=== PATIENT | male | born 1965 | race African-American/Black ===

== ENCOUNTER 2024-05-06 13:26 | Inpatient (IN) | payer OTHER ==
[2024-05-06 14:16] VITALS: BMI 27.6
[2024-05-06] MEDS ORDERED: BENZOCAINE/MENTHOL (CHLORASEPTIC ) LOZENGE MM PRN (14:53)
[2024-05-06] MEDS ORDERED: NICOTINE POLACRILEX 2 MG LOZENGE BC PRN (14:53)
[2024-05-06] MEDS ORDERED: MAG HYDROX/AL HYDROX/SIMETH 30 ML UNIT-DOSE CUP PO PRN (14:53)
[2024-05-06] MEDS ORDERED: NICOTINE POLACRILEX 2 MG GUM BUC PRN (14:53)
[2024-05-06] MEDS ORDERED: POLYETHYLENE GLYCOL (HEALTHYLAX) 3350 17 GM PACKET PO PRN (14:53)
[2024-05-06] MEDS ORDERED: LOPERAMIDE HCL 2 MG CAPSULE PO PRN (14:53)
[2024-05-06] MEDS ORDERED: MAGNESIUM HYDROX 2400MG/30ML ORAL SUSPENSION 30 ML CUP PO PRN (14:53)
[2024-05-06] MEDS ORDERED: BENZONATATE 200 MG CAPSULE PO PRN (14:53)
[2024-05-06] MEDS ORDERED: ACETAMINOPHEN 325 MG TABLET (FP) PO PRN (14:53)
[2024-05-06] MEDS ORDERED: IBUPROFEN 400 MG TABLET (FP) PO PRN (14:53)
[2024-05-06] MEDS ORDERED: hydrOXYzine PAMOATE 25 MG CAPSULE (FP) PO PRN (14:53)
[2024-05-06] MEDS ORDERED: guaiFENesin 600 MG TABLET.ER (FP) PO PRN (14:53)
[2024-05-06] MEDS: ASPIRIN COATED 81 MG TABLET.EC PO SCH (23:18)
[2024-05-06] MEDS: MELATONIN 5 MG TABLETS PO SCH (23:18)
[2024-05-06] MEDS: THIAMINE 100 MG TABLET PO SCH (23:19)
[2024-05-07] MEDS: TUBERCULIN PPD 5 TU/0.1ML SYRINGE (IN PATIENT USE ONLY) ID ONE (09:51)
[2024-05-07] MEDS: PRENATAL VITAMINS W/ FOLIC ACID TABLET (FP) PO SCH (09:51)
[2024-05-07 10:49] LABS: HEMATOCRIT 33.9 % (35.4-49); HEMOGLOBIN 11.6 GM/dL (11.7-16.9); MCH 31.6 pg (25.7-33.7); MCHC 34.2 g/dl (32.0-35.9); MEAN CELL VOLUME 92.5 fl (80-96); MEAN PLT VOLUME 11.9 fl (7.5-11.1); PLATELET COUNT 117 10^3/uL (134-434); RBC 3.67 M/mm3 (4.00-5.60); RDW 13.5 % (11.9-15.9); WHITE BLOOD COUNT 4.8 K/mm3 (4.0-10.0)
[2024-05-07 11:02] LABS: POTASSIUM 3.7 mmol/L (3.5-5.1)
[2024-05-07 11:16] LABS: CALCIUM 7.8 mg/dL (8.5-10.1)
[2024-05-07 11:17] LABS: BLOOD UREA NITROGEN 20.2 mg/dL (7-18)
[2024-05-07 11:20] LABS: CREATININE 1.3 mg/dL (0.55-1.3)
[2024-05-07 11:24] LABS: BILIRUBIN,TOTAL 0.8 mg/dL (0.2-1); TOT PROT 6.2 g/dl (6.4-8.2)
[2024-05-07 11:59] LABS: SYPHILIS W/ RPR CONF REACTIVE (NONREACTIVE)
[2024-05-09] MEDS: SACUBITRIL/VALSARTAN 97 MG-103 MG TABLET PO SCH (14:36)
[2024-05-09] MEDS: CARVEDILOL 12.5 MG TABLET (FP) PO SCH (14:36)
[2024-05-09] MEDS: SPIRONOLACTONE 25 MG TABLET PO SCH (14:37)
[2024-05-09 22:00] LABS: PH,URINE 6.5 (5.0-8.0); URINE APPEARANCE CLEAR; URINE BILIRUBIN NEGATIVE (NEGATIVE); URINE COLOR YELLOW; URINE GLUCOSE (UA) TRACE (NEGATIVE); URINE KETONE NEGATIVE (NEGATIVE); URINE LEUK ESTERASE NEGATIVE (NEGATIVE); URINE NITRITE NEGATIVE (NEGATIVE); URINE PROTEIN TRACE (NEGATIVE); URINE UROBILINOGEN 0.2 mg/dL (0.2-1.0)
[2024-05-10] MEDS: FUROSEMIDE 40 MG TABLET (FP) PO SCH (09:28)
[2024-05-10] MEDS: ISOSORBIDE MONONITRATE 30 MG TAB.SR.24H (FP) PO SCH (10:58)
[2024-05-10] MEDS: QUEtiapine FUMARATE 100 MG TABLET (FP) PO SCH (21:28)
[2024-05-11] MEDS: SERTRALINE HCL 25 MG TABLET (FP) PO SCH (10:01)
[2024-05-12] MEDS: SERTRALINE HCL 50 MG TABLET (FP) PO SCH (10:01)
[2024-05-12] MEDS: IBUPROFEN 600 MG TABLET (FP) PO PRN (11:20)
[2024-05-13] MEDS ORDERED: BENZOCAINE 20 % GEL TUBE MM PRN (10:47)
[2024-05-13] MEDS: BACLOFEN 10 MG TABLET (FP) PO SCH (11:06)
[2024-05-13] MEDS: AMOX TR/POT CLAV 500MG/125MG TABLETS (FP) PO SCH (17:45)
[2024-05-13] MEDS: CARVEDILOL 6.25 MG TABLET (FP) PO SCH (21:28)
[2024-05-19 07:40] VITALS: RESP 18
[2024-05-20 08:21] VITALS: TEMP 97.1
[2024-05-20 09:15] VITALS: BP 125/82; PULSE 52
== END 2024-05-20 09:40 | disposition home or self-care (01) | DRG 772 ==
LOC: YASAS 13:26 → Y3NR 16:54 → Y3E 05-10 09:13
PROVIDERS: ADMIT Allergy & Immunology; ATTEND Psychiatry & Neurology Pain Medicine
PROC: HZ42ZZZ Group Counseling for Substance Abuse Treatment, Cognitive-Behavioral (ICD-10-PCS; principal; 2024-05-06)
DX: F14.20 Cocaine dependence, uncomplicated (principal); F17.210 Nicotine dependence, cigarettes, uncomplicated; F19.982 Other psychoactive substance use, unspecified with psychoactive substance-induced sleep disorder; F19.94 Other psychoactive substance use, unspecified with psychoactive substance-induced mood disorder; I50.9 Heart failure, unspecified; R00.1 Bradycardia, unspecified; K08.89 Other specified disorders of teeth and supporting structures; Z91.148 Patient's other noncompliance with medication regimen for other reason; Z56.0 Unemployment, unspecified; Z59.01 Sheltered homelessness
CPT/HCPCS: 36415; 80053; 80305; 80307; 81003; 85027; 86480; 86593; 86780; 86803; 87811; 93005; 93010; J0475